=== PATIENT | female | born 1985 | race Hispanic/Latino ===

== ENCOUNTER 2021-07-20 13:33 | Emergency (ER) | payer SELFPAY ==
[~2021-07-20] VITALS: Ht 162.6 cm; Wt 78.9 kg
[2021-07-20] MEDS ORDERED: MORPHINE 4 MG SYG IM ONE (14:00)
[2021-07-20] MEDS ORDERED: ONDANSETRON ODT 4MG TAB SL ONE (14:00)
[2021-07-20 14:55] VITALS: BP 135/84
[2021-07-20] MEDS ORDERED: IBUP-2088 PO (15:15)
[2021-07-20] MEDS ORDERED: ACET1TAB25 PO (15:15)
== END 2021-07-20 15:40 | disposition home or self-care (01) ==
LOC: EDH 13:33
DX: S52.592A Other fractures of lower end of left radius, initial encounter for closed fracture (principal); Z79.1 Long term (current) use of non-steroidal anti-inflammatories (NSAID); Z79.899 Other long term (current) drug therapy; W11.XXXA Fall on and from ladder, initial encounter; Y93.89 Activity, other specified; Y92.89 Other specified places as the place of occurrence of the external cause; Y99.8 Other external cause status
CPT/HCPCS: 29125; 73110; 73090; 96372; 99284; J2270

== ENCOUNTER 2021-07-26 16:08 | Emergency (ER) | payer SELFPAY ==
[~2021-07-26] VITALS: Ht 162.6 cm; Wt 76.2 kg
[~2021-07-26 16:08] MED LIST: ACET1TAB25 PO; IBUP-2088 PO
[2021-07-26 17:58] VITALS: BP 126/74
== END 2021-07-26 17:45 | disposition home or self-care (01) ==
LOC: EDH 16:08
DX: S60.212A Contusion of left wrist, initial encounter (principal); Z79.1 Long term (current) use of non-steroidal anti-inflammatories (NSAID); X58.XXXA Exposure to other specified factors, initial encounter; Y93.89 Activity, other specified; Y92.89 Other specified places as the place of occurrence of the external cause; Y99.8 Other external cause status
CPT/HCPCS: 73090